=== PATIENT | female | born 1975 | race Caucasian/White ===

== ENCOUNTER → 2016-05-09 | Outpatient (CLI) | payer BC ==
[2005-09-29 07:00] VITALS: TEMP 98.1
[~2016-05-09] MED LIST: ATIVAN0.5 MG PO; LEXAPRO10 MG PO; PHENERGAN 25 TA25 MG PO; PHENERGAN25 MG RC
== END ==
LOC: MC.RAD 16:17
DX: Z12.31 Encounter for screening mammogram for malignant neoplasm of breast (principal); N64.89 Other specified disorders of breast

== ENCOUNTER → 2016-05-12 | Outpatient (CLI) | payer BC ==
[2005-09-29 07:00] VITALS: TEMP 98.1
== END ==
LOC: MC.RAD 08:52
DX: R92.8 Other abnormal and inconclusive findings on diagnostic imaging of breast (principal)

== ENCOUNTER 2021-01-09 14:10 | Emergency (ER) | payer BC ==
[~2021-01-09] VITALS: Ht 157.5 cm; Wt 70.9 kg
[2021-01-09 14:27] VITALS: TEMP 97.5
[2021-01-09 16:07] LABS: BASO # 0.1 K/mm3 (0.0-0.2); BASO % 0.4 % (0.0-2.0); EOS # 0.1 K/mm3 (0.0-0.7); EOS % 0.9 % (0-4.0); GRAN # 10.9 K/mm3 (1.4-6.5); GRAN % 77.9 % (42.2-75.2); HEMATOCRIT 50.1 % (37.0-47.0); LYMPH # 1.4 K/mm3 (1.2-3.4); LYMPH % 9.6 % (20.0-51.0); MEAN CELL VOLUME 88 fl (80.0-100.0); MEAN CORPUSCULAR HEMOGLOBIN 33 pg (27.0-31.0); MEAN CORPUSCULAR HGB CONC 37 g/dl (33.0-37.0); MEAN PLATELET VOLUME 9.3 fl (7.4-10.4); MONO # 1.4 K/mm3 (0.1-0.6); MONO % 10.3 % (1.7-9.3); PLATELET COUNT 415 K/mm3 (130-400); RED BLOOD COUNT 5.72 M/mm3 (4.10-5.30); REDCELL DISTRIBUTION WIDTH-CV 13.1 % (11.5-14.5)
[2021-01-09 16:22] LABS: BILIRUBIN,TOTAL 0.5 mg/dL (0.2-1.2); CALCIUM 10.1 mg/dL (8.4-10.2); CREATININE, serum 2.73 mg/dL (0.57-1.11); TOTAL PROTEIN 9.2 gm/dL (6.2-8.1)
[2021-01-09 16:24] LABS: POTASSIUM 2.7 mmol/L (3.5-4.5)
[2021-01-09 16:26] LABS: HEMOGLOBIN 18.6 g/dl (12.5-16.0)
[2021-01-09] MEDS ORDERED: KLOR-CON20 MEQ PO (17:43)
[2021-01-09] MEDS ORDERED: CIPRO 500MG TA500 MG PO (17:43)
[2021-01-09 17:57] VITALS: BP 108/71; PULSE 112
[2021-01-12] MEDS ORDERED: DESYREL 50MG50 MG PO (15:55)
[2021-01-12] MEDS ORDERED: ATIVAN 1MG T1 MG/TAB PO (15:55)
[2021-01-12] MEDS ORDERED: CYANOCOBAL1000 MCG/1 IM (15:55)
[2021-01-12] MEDS ORDERED: HYZAAR 50-12.1 UDTAB PO (15:56)
[2021-01-12] MEDS ORDERED: SINGULAIR 110 MG/TAB PO (15:57)
[2021-01-12] MEDS ORDERED: MIRAPEX0.25 MG PO (15:57)
[2021-01-12] MEDS ORDERED: PROTONIX 40MG T40 MG PO (15:57)
[2021-01-12] MEDS ORDERED: CARAFATE S1 GM/10 ML PO (15:58)
[2021-01-12] MEDS ORDERED: ZOLOFT 100MG100 MG PO (15:58)
[2021-01-14] MEDS ORDERED: COZAAR 50MG50 MG/TAB PO (09:28)
== END 2021-01-09 18:00 | disposition home or self-care (01) ==
LOC: COL.ER 14:10
PROVIDERS: Personal Emergency Response Attendant
DX: E87.6 Hypokalemia (principal); N28.9 Disorder of kidney and ureter, unspecified; R19.7 Diarrhea, unspecified
CPT/HCPCS: J7030